=== PATIENT | female | born 1995 | race Caucasian/White ===

== ENCOUNTER 2018-06-27 07:42 | Emergency (ER) | payer OTHER ==
[~2018-06-27] VITALS: Ht 177.8 cm; Wt 102.5 kg
[2018-06-27] MEDS ORDERED: SERTRALINE HCL50 MG PO (08:08)
[2018-06-27] MEDS ORDERED: ADDERALL 15 MG15 MG PO (08:08)
[2018-06-27] MEDS ORDERED: XANAX 0.25 MG0.25 MG PO (08:08)
[2018-06-27 08:23] LABS: ABSOLUTE EOSINOPHILS 0.1 thou/uL (0.0-0.7); ABSOLUTE LYMPHOCYTES 1.7 thou/uL (0.8-5.3); ABSOLUTE MONOCYTES 0.6 thou/uL (0.0-1.2); BASOPHILS 0.3 %; EOSINOPHILS 1.3 %; HEMATOCRIT 42.3 % (37.0-47.0); HEMOGLOBIN 14.3 gm/dL (12.0-15.0); LYMPHOCYTES 19.7 %; MCH 27.7 pg (26.0-34.0); MCHC 33.8 g/dL (28.0-37.0); MCV 81.8 fL (80.0-100.0); MONOCYTES 6.8 %; MPV 8.4 fl. (7.2-11.1); NUCLEATED RBCS 0 /100WBC; PLATELET COUNT* 285 thou/uL (150-400); POLYS 71.9 %; RBC 5.17 mil/uL (4.20-5.00); RDW-CV 15.1 % (10.5-14.5); WBC 8.4 thou/uL (4.0-11.0)
[2018-06-27 08:34] LABS: CALCIUM 8.5 mg/dL (8.5-10.1); CREATININE 0.8 mg/dL (0.6-1.3); POTASSIUM 3.6 mmol/L (3.5-5.1)
[2018-06-27 08:43] LABS: TOTAL BILIRUBIN 0.9 mg/dL (<0.1-1.0); TOTAL PROTEIN 7.3 g/dL (6.4-8.2)
[2018-06-27 08:47] LABS: URINE BILIRUBIN NEGATIVE (Negative); URINE BLOOD NEGATIVE (Negative); URINE CLARITY CLEAR; URINE COLOR YELLOW; URINE GLUCOSE-RANDOM NEGATIVE (Negative); URINE KETONES NEGATIVE (Negative); URINE LEUKOCYTES-REFLEX NEGATIVE (Negative); URINE NITRITE-REFLEX NEGATIVE (Negative); URINE PROTEIN NEGATIVE (Negative)
[2018-06-27] MEDS ORDERED: CARAFATE 1 GM TA1 G1 PO (09:13)
[2018-06-27] MEDS ORDERED: HYDROCODONE-AP1 EAC6 PO (09:13)
[2018-06-27] MEDS ORDERED: ZOFRAN ODT4 MG DISSOLVE (09:13)
[2018-06-27 09:24] VITALS: BP 120/58
== END 2018-06-27 09:26 | disposition home or self-care (01) ==
LOC: M.ERS 07:42
PROVIDERS: Emergency Medicine Emergency Medical Services
DX: R11.2 Nausea with vomiting, unspecified (principal); R10.12 Left upper quadrant pain; F90.9 Attention-deficit hyperactivity disorder, unspecified type; F17.210 Nicotine dependence, cigarettes, uncomplicated

== ENCOUNTER 2018-08-02 03:12 | Emergency (ER) | payer OTHER ==
[~2018-08-02] VITALS: Ht 180.3 cm; Wt 99.8 kg
[~2018-08-02 03:12] MED LIST: ADDERALL 15 MG15 MG PO; CARAFATE 1 GM TA1 G1 PO; HYDROCODONE-AP1 EAC6 PO; SERTRALINE HCL50 MG PO; XANAX 0.25 MG0.25 MG PO; ZOFRAN ODT4 MG DISSOLVE
[2018-08-02 03:33] LABS: ABSOLUTE EOSINOPHILS 0.2 thou/uL (0.0-0.7); ABSOLUTE LYMPHOCYTES 1.5 thou/uL (0.8-5.3); ABSOLUTE MONOCYTES 0.7 thou/uL (0.0-1.2); BASOPHILS 0.3 %; EOSINOPHILS 1.2 %; HEMATOCRIT 42.4 % (37.0-47.0); HEMOGLOBIN 14.1 gm/dL (12.0-15.0); LYMPHOCYTES 12.5 %; MCH 27.4 pg (26.0-34.0); MCHC 33.4 g/dL (28.0-37.0); MCV 82.2 fL (80.0-100.0); MONOCYTES 5.4 %; MPV 8.2 fl. (7.2-11.1); NUCLEATED RBCS 0 /100WBC; PLATELET COUNT* 325 thou/uL (150-400); POLYS 80.6 %; RBC 5.16 mil/uL (4.20-5.00); RDW-CV 14.6 % (10.5-14.5); WBC 12.4 thou/uL (4.0-11.0)
[2018-08-02] MEDS ORDERED: ZYPREXA2.5 MG PO (03:33)
[2018-08-02 03:40] LABS: CALCIUM 8.6 mg/dL (8.5-10.1); CREATININE 0.7 mg/dL (0.6-1.3); POTASSIUM 3.4 mmol/L (3.5-5.1)
[2018-08-02] MEDS ORDERED: CARAFATE 1 GM TA1 G1 PO (03:56)
[2018-08-02] MEDS ORDERED: PRILOSEC OTC20 MG PO (03:56)
[2018-08-02] MEDS ORDERED: PHENERGAN 25 MG25 M1 PO (03:56)
[2018-08-02 04:22] VITALS: BP 110/62
== END 2018-08-02 04:25 | disposition home or self-care (01) ==
LOC: M.ERS 03:12
PROVIDERS: Emergency Medicine
DX: K29.70 Gastritis, unspecified, without bleeding (principal); F90.9 Attention-deficit hyperactivity disorder, unspecified type; F17.210 Nicotine dependence, cigarettes, uncomplicated